=== PATIENT | female | born 1960 | race Caucasian/White ===

== ENCOUNTER 2016-08-14 10:45 | Emergency (ER) | payer SELFPAY ==
[~2016-08-14] VITALS: Ht 167.6 cm; Wt 83.9 kg
[2016-08-14] MEDS ORDERED: PAXIL20 MG PO (11:34)
[2016-08-14 13:10] VITALS: BP 108/81
== END 2016-08-14 13:11 | disposition home or self-care (01) ==
LOC: EME 10:45
DX: L03.011 Cellulitis of right finger (principal); W26.8XXA Contact with other sharp object(s), not elsewhere classified, initial encounter; Y92.513 Shop (commercial) as the place of occurrence of the external cause; Z88.2 Allergy status to sulfonamides
CPT/HCPCS: 73140; 99281; 99284